=== PATIENT | male | born 1975 | race Native Hawaiian/Other Pacific Islander ===

== ENCOUNTER 2018-07-02 12:00 | Emergency (ER) | payer OTHER ==
--- NOTE | 2018-07-02 12:07 | Emergency Department Report ---
Blank Doc - Documentation Documentation: This is a 43-year-old male that presents with URI symptoms with n/v and weakne ss. This initial assessment/diagnostic orders/clinical plan/treatment(s) is/are subject to change based on patient's health status, clinical progression and re- assessment by fellow clinical providers in the ED. Further treatment and workup at subsequent clinical providers discretion. Patient/guardians urged not to elope from the ED as their condition may be serious if not clinically assessed and managed. Initial orders include: 1- Patient sent to [facility] for further evaluation and treatment 2- Jeny present during translation 3- xray 4- labs
[2018-07-02 13:01] LABS: Basophils % (Auto) 0.3 % (0.0-1.8); Eosinophils % (Auto) 8.2 % (0.0-4.3); Hematocrit 46.9 % (35.5-45.6); Hemoglobin 15.9 gm/dl (11.8-15.2); Lymphocytes % (Auto) 33.8 % (13.4-35.0); Mean Corpuscular HGB Conc 34 % (32-34); Mean Corpuscular Volume 94 fl (84-94); Monocytes # (Auto) 0.6 K/mm3 (0.0-0.8); Monocytes % (Auto) 5.3 % (0.0-7.3); Platelet Count 309 K/mm3 (140-440); Red Blood Count 4.99 M/mm3 (3.65-5.03); Red Cell Distribution Width 13.4 % (13.2-15.2)
--- NOTE | 2018-07-02 13:09 | XRay Report ---
CHEST 2 VIEWS INDICATION: Cough. COMPARISON: None similar at this institution. FINDINGS: PA and lateral chest radiographs demonstrate normal cardiomediastinal silhouette. Clear lungs. Intact bones. CONCLUSION: No acute disease in the chest. Thank you for the opportunity to participate in this patient's care.
[2018-07-02 13:20] LABS: Alanine Aminotransferase 21 units/L (7-56); BUN/Creatinine Ratio 13; Blood Urea Nitrogen 15 mg/dL (9-20); Hemolysis Index 13
[2018-07-02 13:25] LABS: Bilirubin,Direct < 0.2 mg/dL (0-0.2)
--- NOTE | 2018-07-02 13:29 | Emergency Department Report ---
ED General Adult HPI - General Chief complaint: Weakness Stated complaint: COUGHX3 WKS/VOMITING BLOOD/DIARRHEA Time Seen by Provider: 07/02/18 12:05 Source: patient Mode of arrival: Ambulatory Limitations: No Limitations - History of Present Illness Initial comments: 43-year-old male with no past history presents to ED with report of productive cough 3 weeks. Reports associated headache and vomiting with streaks of blood. Patient reports onset of diarrhea yesterday. Denies fever, abdominal pain. Patient reports associated generalized weakness. -: week(s) (3) Location: head, chest, abdomen Consistency: constant Improves with: none Worsens with: none Treatments Prior to Arrival: other (OTC cold meds) - Related Data Previous Rx's Medication Instructions Recorded Last Taken Type Benzonatate [Tessalon Perles] 100 mg PO Q8HR PRN #20 capsule 07/02/18 Unknown Rx Promethazine [Phenergan TAB] 25 mg PO Q6HR PRN #20 tab 07/02/18 Unknown Rx hydroCHLOROthiazide [Hctz] 12.5 mg PO QDAY #30 capsule 07/02/18 Unknown Rx Allergies Allergy/AdvReac Type Severity Reaction Status Date / Time No Known Allergies Allergy Unverified 07/02/18 12:03 ED Review of Systems ROS: Stated complaint: COUGHX3 WKS/VOMITING BLOOD/DIARRHEA Other details as noted in HPI Comment: All other systems reviewed and negative Constitutional: denies: chills, fever Respiratory: cough. denies: shortness of breath Cardiovascular: denies: chest pain Gastrointestinal: nausea, vomiting, diarrhea. denies: abdominal pain, melena, hematochezia Neurological: headache ED Past Medical Hx - Past Medical History Previous Medical History?: No - Surgical History Past Surgical History?: No - Social History Smoking Status: Never Smoker Substance Use Type: None - Medications Home Medications: Home Medications Medication Instructions Recorded Confirmed Last Taken Type Benzonatate [Tessalon Perles] 100 mg PO Q8HR PRN #20 capsule 07/02/18 Unknown Rx Promethazine [Phenergan TAB] 25 mg PO Q6HR PRN #20 tab 07/02/18 Unknown Rx hydroCHLOROthiazide [Hctz] 12.5 mg PO QDAY #30 capsule 07/02/18 Unknown Rx ED Physical Exam - General Limitations: No Limitations General appearance: alert, in no apparent distress - Head Head exam: Present: atraumatic, normocephalic - Eye Eye exam: Present: normal appearance - ENT ENT exam: Present: mucous membranes moist - Neck Neck exam: Present: normal inspection - Respiratory Respiratory exam: Present: normal lung sounds bilaterally. Absent: respiratory distress - Cardiovascular Cardiovascular Exam: Present: regular rate, normal rhythm - GI/Abdominal GI/Abdominal exam: Present: soft. Absent: distended, tenderness - Extremities Exam Extremities exam: Present: normal inspection - Neurological Exam Neurological exam: Present: alert, oriented X3, CN II-XII intact. Absent: motor sensory deficit - Psychiatric Psychiatric exam: Present: normal affect, normal mood - Skin Skin exam: Present: warm, dry, intact, normal color ED Course Vital Signs 07/02/18 07/02/18 12:06 13:46 Temperature 98.1 F 98.3 F Pulse Rate 79 70 Respiratory 16 16 Rate Blood Pressure 154/101 Blood Pressure 150/92 [Left] O2 Sat by Pulse 98 96 Oximetry ED Medical Decision Making - Lab Data Result diagrams: 07/02/18 12:39 07/02/18 12:39 - Radiology Data Radiology results: report reviewed, image reviewed - Medical Decision Making - CXR negative - labs unremarkable - BP slightly elevated into the 150s, will start HCTZ - outpt f/u advised - return precautions given - Differential Diagnosis pneumonia, URI, gastritis, HTN Critical care attestation.: If time is entered above; I have spent that time in minutes in the direct care o f this critically ill patient, excluding procedure time. ED Disposition Clinical Impression: Hypertension, URI (upper respiratory infection), Gastroenteritis Disposition: TO HOME OR SELFCARE Is pt being admited?: No Condition: Stable Instructions: Hypertension (ED), Upper Respiratory Infection (ED), Gastroenteritis (ED) Prescriptions: hydroCHLOROthiazide [Hctz] 12.5 mg PO QDAY #30 capsule Promethazine [Phenergan TAB] 25 mg PO Q6HR PRN #20 tab PRN Reason: Nausea Benzonatate [Tessalon Perles] 100 mg PO Q8HR PRN #20 capsule PRN Reason: Cough Referrals: [facility] [Other] - 3-5 Days Time of Disposition: 13:57 Print Language: AZERI
[2018-07-02 13:50] VITALS: BP 150/92
== END 2018-07-02 14:09 | disposition home or self-care (01) ==
LOC: ED 12:00
DX: K52.9 Noninfective gastroenteritis and colitis, unspecified (principal); J06.9 Acute upper respiratory infection, unspecified; I10 Essential (primary) hypertension
CPT/HCPCS: 36415; 71046; 80048; 80076; 83690; 85025; 99283